=== PATIENT | female | born 1955 | race Caucasian/White ===

== ENCOUNTER 2016-05-25 16:47 | Observation (INO) | payer OTHER ==
[~2016-05-25] VITALS: Ht 142.2 cm; Wt 61.5 kg
[~2016-05-25 16:47] MED LIST: AMBIEN10 M1 PO; AMBIEN10 MG PO; AMITIZA24 MICROGR PO; AMLODIPINE BESYL5 MG; ATORVASTATIN 10 MG T; Ambien PO; BENADRYL25 MG PO; CARBAMAZEPINE200 M2; CARBATROL-ER200 MG PO; CLARITIN10 M3 PO; DEPAKOTE ER (E500 M1 PO; DEPAKOTE ER (E500 MG PO; DEPAKOTE ER500 MG PO; DEPAKOTE250 MG PO; DESYREL100 MG PO; DIPHENHYDRAMINE50 M1 PO; DIVALPROEX SOD250 M1; DIVALPROEX SOD500 M1 PO; Depakote PO; GEODON80 MG PO; LIPITOR5 MG PO; Levaquin PO; Lotrimin Cream TP; MYLANTA 360 ML360 ML PO; Miralax, Glycolax PO; NORVASC5 MG PO; Naprosyn PO; OSCAL, OYSTER500 MG PO; OYSTER CALCIUM PO; RISPERDAL0.5 MG PO; RISPERDAL1 MG PO; Robitussin DM PO; SODIUM CHLORIDE1 G1 PO; SODIUM CHLORIDE1 GM MC; SODIUM CHLORIDE1 GM PO; TRAZODONE HCL100 MG PO; TRAZODONE HCL50 MG; TYLENOL REGULA325 MG PO; Tylenol Regular Stre PO; VITAMIN E400 UNIT PO; VITAMIN-E400 INTUNI PO; XANAX0.5 MG PO; XANAX1 MG PO; ZIPRASIDONE HCL80 MG PO; ZOLPIDEM TARTRA10 MG; risperDAL PO
[2016-05-25 17:59] LABS: HEMATOCRIT 34.6 % (36.0-46.0); MCH 30.5 PG (29.0-34.0); MCHC 34.4 G/DL (30.0-36.0); MCV 88.7 FL (83-99); MEAN PLAT.VOLUME 9.5 uM^3 (9.5-12.4); PLATELET COUNT 244 K/uL (156-360); RBC DIS.WIDTH-CV 12.5 % (11.8-14.6); RBC DIS.WIDTH-SD 39.8 % (39-53); WHITE BLOOD COUNT 9.7 K/uL (4.1-10.2)
[2016-05-25 18:09] LABS: CHLORIDE 98 mEq/L (99-109); POTASSIUM 4.7 mEq/L (3.7-5.4); SODIUM 134 mEq/L (136-147)
[2016-05-25 18:11] LABS: GLUCOSE 102 mg/dL (70-99)
[2016-05-25 18:12] LABS: ANION GAP 10 MEQ/L (2-14)
[2016-05-25 18:15] LABS: GFR ESTIMATE (CALCULATED) > 59 mL/min/
[2016-05-25 18:16] LABS: UREA NITROGEN (BUN) 14 mg/dL (9-23)
[2016-05-25 19:27] LABS: ADD MIUA? NO; BILIRUBIN NEGATIVE; BLOOD NEGATIVE; COLOR YELLOW ((YELLOW)); GLUCOSE (STRIP) NEGATIVE; KETONES NEGATIVE; LEUKOCYTES NEGATIVE; NITRITE NEGATIVE; PROTEIN (STRIP) NEGATIVE; SPECIFIC GRAVITY 1.015 (1.000-1.030); UCUL ADDED? NO; UROBILINOGEN 0.2 MG/DL (0.2-1.0)
[2016-05-25] MEDS ORDERED: ATORVASTATIN CA10 MG PO (23:03)
[2016-05-25] MEDS ORDERED: LISINOPRIL10 MG PO (23:04)
[2016-05-25] MEDS ORDERED: OLANZAPINE10 MG PO (23:05)
[2016-05-25] MEDS ORDERED: VITAMIN E400 UNIT PO (23:06)
[2016-05-25] MEDS ORDERED: ZOLPIDEM TARTRAT5 MG PO (23:07)
[2016-05-25] MEDS ORDERED: TRIHEXYPHENIDYL2 MG PO (23:09)
[2016-05-25] MEDS ORDERED: OLANZAPINE2.5 MG PO (23:10)
[2016-05-25] MEDS ORDERED: ARTIFICIAL TEAR15 M1 BOTH EYES (23:11)
[2016-05-25] MEDS ORDERED: HEMORRHOIDAL OI57 G2 PR (23:14)
[2016-05-25] MEDS ORDERED: GERI-LANTA LIQ355 ML PO (23:14)
[2016-05-25] MEDS ORDERED: NAPROXEN500 MG PO (23:15)
[2016-05-25] MEDS ORDERED: NAPROSYN500 MG PO (23:16)
[2016-05-25] MEDS ORDERED: PEPTIC REL262 MG/15 PO (23:17)
[2016-05-25] MEDS ORDERED: Q-TUSSIN DM SY240 ML PO (23:18)
[2016-05-25] MEDS ORDERED: CLOTRIMAZOLE15 GM TP (23:19)
[2016-05-25 23:41] VITALS: BP 170/104
[2016-05-26 03:50] LABS: HDL CHOLESTEROL 42 MG/DL (Desirable>=50); LDL CHOLESTEROL 59 mg/dL (Desirable<100); NON-HDL CHOLESTEROL 80 mg/dL (Desirable<160); SAMPLE HEMOLYSIS CHECK 0; SAMPLE ICTERIC CHECK 0; SAMPLE LIPEMIA CHECK 0; TOTAL CHOLESTEROL 122 mg/dL (Desirable<200); TRIGLYCERIDES 107 MG/DL (Normal: <150)
[2016-05-26 05:00] VITALS: BP 138/65
[2016-05-26 06:41] LABS: Estimated Average Glucose 117 mg/dL (70-123); HEMOGLOBIN A1c (GLYCOHEMOGLOB) 5.7 % HGB (Below 5.7)
[2016-05-26 08:00] VITALS: BP 138/77
== END 2016-05-26 16:53 | disposition home or self-care (01) ==
LOC: EME 16:47 → EDOF 22:30 → 5WEST 23:25
PROVIDERS: Emergency Medicine; Physician Assistant
DX: G45.9 Transient cerebral ischemic attack, unspecified (principal); R41.82 Altered mental status, unspecified; R47.1 Dysarthria and anarthria; F79 Unspecified intellectual disabilities
CPT/HCPCS: 70450; 70551; 71010; 80048; 80061; 81003; 83036; 85027; 99281; 99285; G0378; J1650; J2060